=== PATIENT | female | born 1955 | race Two or more races ===

== ENCOUNTER 2017-04-17 13:49 | Emergency (ER) | payer SELFPAY ==
[~2017-04-17] VITALS: Ht 147.3 cm; Wt 59.0 kg
[2017-04-17 14:01] VITALS: BP 164/81
[2017-04-17 15:19] LABS: Albumin 3.8 g/dL (3.4-5.0); Bilirubin, Total 0.8 mg/dL (0.2-1.0); Potassium 3.3 mmol/L (3.5-5.1); Total Protein 8.1 g/dL (6.4-8.2)
[2017-04-17 15:40] LABS: Eosinophils % (auto) 1.6 % (0.0-7.0); Lymphocytes % (auto) 31.9 % (10.0-50.0); Monocytes % (auto) 7.8 % (0.0-12.0); Neutrophils % (auto) 58.3 % (37.0-80.0); White Blood Cell 8.5 10^3/uL (4.4-10.8)
[2017-04-17 15:41] LABS: Basophils # (auto) 0 uL; Basophils % (auto) 0.4 % (0.0-2.0); Eosinophils # (auto) 0.1 uL; Hematocrit 40.6 % (36.0-46.0); Hemoglobin 13.8 g/dL (12.2-16.2); Lymphocytes # (auto) 2.7 uL; Mean Corpuscular Volume 90.6 fL (80.0-100.0); Monocytes # (auto) 0.7 uL; Red Blood Cells 4.48 10^6/uL (4.0-5.20)
[2017-04-17 15:42] LABS: Mean Corpuscular Hemoglobin 30.8 pg (28.0-32.0); Mean Corpuscular Hgb Conc. 33.9 g/dL (32.0-36.0); Platelet Count (auto) 207 10^3/uL (140-450); Red Cell Distribution Width 13.6 % (11.8-14.3)
== END 2017-04-17 18:29 | disposition home or self-care (01) ==
LOC: ER 13:49 → EDBD 13:49 → ER 18:27
DX: S01.01XA Laceration without foreign body of scalp, initial encounter (principal); W26.9XXA Contact with unspecified sharp object(s), initial encounter; Y93.89 Activity, other specified; Y99.8 Other external cause status; Y92.89 Other specified places as the place of occurrence of the external cause
CPT/HCPCS: 12001; 36415; 70450; 71046; 80053; 85025